=== PATIENT | male | born 1980 | race Caucasian/White ===

== ENCOUNTER 2017-04-22 13:54 | Emergency (ER) | payer OTHER ==
[2017-04-22 14:28] VITALS: BP 158/94
[2017-04-22] MEDS ORDERED: Ondansetron 4 MG/2 ML SDV IVPUSH ONE (14:45)
[2017-04-22] MEDS ORDERED: Sodium Chloride 0.9% 10 ML Syringe FLUSH PRN (14:45)
[2017-04-22] MEDS ORDERED: Ketorolac 30 MG/ML SDV IVPUSH ONE (14:45)
[2017-04-22] MEDS ORDERED: Sodium Chloride 0.9% 1,000 ML IV ONE (14:45)
[2017-04-22] MEDS ORDERED: HYDROmorphone 1 MG/ML Syringe IVPUSH ONE (16:05)
--- NOTE | 2017-04-22 16:38 | EDM.PDOC ---
ED HPI GENERAL MEDICAL PROBLEM - General Chief Complaint: Headache Stated Complaint: Headache, neck pain Time Seen by Provider: 04/22/17 14:30 Source of Information: Reports: Patient, RN Notes Reviewed History Limitations: Reports: No Limitations - History of Present Illness INITIAL COMMENTS - FREE TEXT/NARRATIVE: 36 year old male presents to the ED today with complaints of progressively worsening neck pain and headache over the past 5 days. Symptoms started after he had a massage 5 days ago. The pain started in his neck and has radiated over top of his head and is not behind both eyes. He is mildly sensitive to light. He has had nausea with vomiting x5 today. He denies vision changes, slurred speech, weakness in extremities, loss of balance, fever. He has felt tired with some chills. He has a history of migraines but feels this is different. He denies thunder clap type onset. He denies any head or neck injury. 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 Head Pain Score (Numeric/FACES): 10 - Related Data Allergies Allergy/AdvReac Type Severity Reaction Status Date / Time No Known Allergies Allergy Verified 04/22/17 14:32 Home Meds: Home Meds LORazepam [Ativan] 0.5 mg PO ASDIRECTED PRN 04/22/17 [History] Losartan [Cozaar] 50 mg PO DAILY 04/22/17 [History] Meloxicam 15 mg PO DAILY 04/22/17 [History] Orphenadrine [Norflex] 100 mg PO BID #15 tab.er 04/22/17 [Rx] Past Medical History Cardiovascular History: Reports: Hypertension Psychiatric History: Reports: Depression Social & Family History - Tobacco Use Smoking Status *Q: Never Smoker - Caffeine Use Caffeine Use: Reports: None - Recreational Drug Use Recreational Drug Use: No ED ROS GENERAL - Review of Systems Review Of Systems: See Below Constitutional: Reports: Chills. Denies: Fever, Diaphoresis HEENT: Reports: No Symptoms. Denies: Vision Change Respiratory: Reports: No Symptoms. Denies: Shortness of Breath, Cough Cardiovascular: Reports: No Symptoms. Denies: Chest Pain GI/Abdominal: Reports: Nausea, Vomiting. Denies: Abdominal Pain, Constipation, Diarrhea Musculoskeletal: Reports: Neck Pain, Muscle Pain Neurological: Reports: Headache. Denies: Confusion, Dizziness, Numbness, Tingling, Weakness - Physical Exam Exam: See Below Exam Limited By: No Limitations General Appearance: Alert, WD/WN, Moderate Distress Eye Exam: Bilateral Eye: EOMI, PERRL Head Exam: Atraumatic, Normocephalic Neck: Normal Inspection, Supple, Full Range of Motion, Tender Lateral, Other ( muscles are very tight). No: Tender Midline Respiratory/Chest: No Respiratory Distress, Lungs Clear, Normal Breath Sounds Cardiovascular: Normal Peripheral Pulses, Regular Rate, Rhythm, No Murmur GI/Abdominal: Normal Bowel Sounds, Soft, Non-Tender Neuro Exam (Abbreviated): Alert, Oriented, CN II-XII Intact, Normal Cognition, No Motor/Sensory Deficits, Other (cerebellar testing intact. upper and lower extremity strengths are equal bilaterally ) Extremities: Normal Inspection, Normal Range of Motion Skin Exam: Warm, Dry, Intact Course - Vital Signs Last Recorded V/S: Last Vital Signs Temp 99.7 F 04/22/17 14:27 Pulse 64 04/22/17 14:27 Resp 20 04/22/17 14:27 BP 158/94 H 04/22/17 14:27 Pulse Ox 100 04/22/17 14:27 - Orders/Labs/Meds Orders: Active Orders 24 hr Category Date Time Status Peripheral IV Care [RC] . DIRECTED Care 04/22/17 14:46 Active Peripheral IV Insertion Adult [OM.PC] Stat Oth 04/22/17 14:45 Ordered Meds: Medications Discontinued Medications Generic Name Dose Route Start Last Admin Trade Name Freq PRN Reason Stop Dose Admin Diazepam 5 mg 04/22/17 14:45 04/22/17 15:01 Valium IM 04/22/17 14:46 5 mg ONETIME ONE Administration Hydromorphone HCl 1 mg 04/22/17 16:05 04/22/17 16:10 Dilaudid IVPUSH 04/22/17 16:06 1 mg ONETIME ONE Administration Sodium Chloride 1,000 mls @ 999 mls/hr 04/22/17 14:45 04/22/17 15:00 Normal Saline IV 04/22/17 15:45 999 mls/hr ONETIME ONE Administration Ketorolac Tromethamine 30 mg 04/22/17 14:45 04/22/17 15:05 Toradol IVPUSH 04/22/17 14:46 30 mg ONETIME ONE Administration Ondansetron HCl 4 mg 04/22/17 14:45 04/22/17 15:03 Zofran IVPUSH 04/22/17 14:46 4 mg ONETIME ONE Administration Sodium Chloride 10 ml 04/22/17 14:45 04/22/17 15:06 Saline Flush FLUSH 10 ml ASDIRECTED PRN Administration Keep Vein Open - Re-Assessments/Exams Free Text/Narrative Re-Assessment/Exam: Neuro exam today is normal. History and exam are consistent with tension type headache. Initial treatment included IV NS 1 liter bolus, Zofran 4mg, Toradol 30mg, and Valium 5mg. Patient had some improvement in his neck pain but little improvement in frontal headache. He was then given 1mg IV Dilaudid and had complete resolution of pain. He will be discharged home. Educated that he cannot drive. He was told to stop his Meloxicam by Dr. Leyva. Educated on return precautions. Discharge instructions as documented. Departure - Departure Time of Disposition: 16:38 Disposition: Home, Self-Care 01 Condition: Good Clinical Impression: Tension-type headache - Discharge Information Prescriptions: Orphenadrine [Norflex] 100 mg PO BID #15 tab.er Instructions: Tension Headache, [id number] Referrals: Rony Catherine MD [Primary Care Provider] - Forms: ED Department Discharge Additional Instructions: Go home and rest in a dark quiet environment Tylenol 1000mg every 8 hours as needed for pain Stop Meloxicam Start Orphadrine (Norflex) 100mg twice a day (morning and night) to help relax your muscles Avoid Ibuprofen or Aleve for the next couple days You can also take Bendaryl 1-2 tabs every 6 hours Return to ER with any new or worsening symptoms - My Orders Last 24 Hours: My Active Orders 04/22/17 14:45 Peripheral IV Insertion Adult [OM.PC] Stat 04/22/17 14:46 Peripheral IV Care [RC] . DIRECTED - Assessment/Plan Last 24 Hours: My Active Orders 04/22/17 14:45 Peripheral IV Insertion Adult [OM.PC] Stat 04/22/17 14:46 Peripheral IV Care [RC] . DIRECTED
== END 2017-04-22 16:46 | disposition home or self-care (01) ==
LOC: JD.ED 13:54
DX: G44.209 Tension-type headache, unspecified, not intractable (principal); I10 Essential (primary) hypertension; Z79.899 Other long term (current) drug therapy
CPT/HCPCS: 96361; 96372; 96374; 96375; 99284; J1170; J1885; J2405; J3360; J7040; J7050

== ENCOUNTER 2017-08-12 08:13 | Emergency (ER) | payer OTHER ==
[2017-08-12 08:23] VITALS: BP 144/95
[2017-08-12] MEDS ORDERED: Sodium Chloride 0.9% 10 ML Syringe FLUSH PRN (08:37)
[2017-08-12] MEDS ORDERED: Aspirin 81 MG Tab.Chew PO ONE (08:43)
--- NOTE | 2017-08-12 09:31 | CR ---
Chest: Portable view of the chest was obtained. Comparison: No prior chest x-ray. Heart size and mediastinum are normal. Lungs are clear. Bony structures are grossly intact. Impression: 1. Nothing acute is identified on portable chest x-ray. Diagnostic code #1
--- NOTE | 2017-08-12 09:45 | EDM.PDOC ---
ED HPI GENERAL MEDICAL PROBLEM - General Chief Complaint: Chest Pain Stated Complaint: CHEST PAIN Time Seen by Provider: 08/12/17 08:24 Source of Information: Reports: Patient History Limitations: Reports: No Limitations - History of Present Illness INITIAL COMMENTS - FREE TEXT/NARRATIVE: The patient presents with left sided chest tightness. This has been going on for 4 days. The pain comes and goes. He is not noticing anything that makes it better or worse. He has no shortness of breath with it. He has no fever, chills, cough, congestion, runny nose or abdominal pain. He has had this before and he had EKGs, CXR, labs and a holter monitor and nothing was found. He does not smoke. He has a history of HTN. He is not a diabetic and he has no high cholesterol. Onset: Gradual Duration: Day(s): (4) Location: Reports: Chest Quality: Reports: Other (Tightness) Severity: Mild Improves with: Reports: None Worsens with: Reports: None Associated Symptoms: Reports: Chest Pain. Denies: Cough, Fever/Chills, Headaches, Nausea/Vomiting, Shortness of Breath Chest Pain Score (Numeric/FACES): 3 - Related Data Allergies Allergy/AdvReac Type Severity Reaction Status Date / Time clarithromycin [From Biaxin] Allergy Cannot Verified 08/12/17 08:18 Remember meloxicam Allergy Headache Verified 08/12/17 08:18 Home Meds: Home Meds LORazepam [Ativan] 0.5 mg PO ASDIRECTED PRN 04/22/17 [History] Losartan [Cozaar] 50 mg PO DAILY 04/22/17 [History] Orphenadrine [Norflex] 100 mg PO BID #15 tab.er 04/22/17 [Rx] Past Medical History Cardiovascular History: Reports: Hypertension Musculoskeletal History: Reports: Other (See Below) Other Musculoskeletal History: "tight muscles" Psychiatric History: Reports: Depression Social & Family History - Family History Family Medical History: Noncontributory - Tobacco Use Smoking Status *Q: Never Smoker - Caffeine Use Caffeine Use: Reports: Soda - Alcohol Use Days Per Week of Alcohol Use: 7 Number of Drinks Per Day: 4 Total Drinks Per Week: 28 Date of Last Drink: 08/07/17 - Recreational Drug Use Recreational Drug Use: No ED ROS GENERAL - Review of Systems Review Of Systems: See Below Constitutional: Reports: No Symptoms HEENT: Reports: No Symptoms Respiratory: Reports: No Symptoms Cardiovascular: Reports: Chest Pain Endocrine: Reports: No Symptoms GI/Abdominal: Reports: No Symptoms : Reports: No Symptoms Musculoskeletal: Reports: No Symptoms Skin: Reports: No Symptoms ED EXAM, GENERAL - Physical Exam Exam: See Below Exam Limited By: No Limitations General Appearance: Alert, No Apparent Distress Ears: Normal External Exam Nose: Normal Inspection Head: Atraumatic, Normocephalic Neck: Normal Inspection Respiratory/Chest: No Respiratory Distress, Lungs Clear, Normal Breath Sounds Cardiovascular: Regular Rate, Rhythm, No Edema, No Murmur GI/Abdominal: Soft, Non-Tender, No Organomegaly, No Mass Back Exam: Normal Inspection Extremities: Normal Inspection Neurological: Alert, Oriented, No Motor/Sensory Deficits EKG INTERPRETATION EKG Date: 08/12/17 Time: 08:20 Rhythm: NSR Rate (Beats/Min): 76 [place]: Normal P-Wave: Present QRS: Normal ST-T: Normal QT: Normal Course - Vital Signs Last Recorded V/S: Last Vital Signs Temp 97.2 F 08/12/17 08:19 Pulse 75 08/12/17 08:19 Resp BP 144/95 H 08/12/17 08:19 Pulse Ox 98 08/12/17 08:19 - Orders/Labs/Meds Orders: Active Orders 24 hr Category Date Time Status Cardiac Monitoring [RC] . DIRECTED Care 08/12/17 08:37 Active EKG Documentation Completion [RC] ASDIRECTED Care 08/12/17 08:27 Active Peripheral IV Care [RC] . DIRECTED Care 08/12/17 08:38 Active Sodium Chloride 0.9% [Saline Flush] Med 08/12/17 08:37 Active 10 ml FLUSH ASDIRECTED PRN EKG 12 Lead [EK] Stat Ther 08/12/17 08:27 Ordered Medication Orders Sodium Chloride (Saline Flush) 10 ml FLUSH ASDIRECTED PRN PRN Reason: Keep Vein Open Labs: Laboratory Tests 08/12/17 08/12/17 Range/Units 08:55 08:55 WBC 6.81 (4.23-9.07) K/mm3 RBC 5.05 (4.63-6.08) M/mm3 Hgb 15.0 (13.7-17.5) gm/L Hct 44.7 (40.1-51.0) % MCV 88.5 (79.0-92.2) fl MCH 29.7 (25.7-32.2) pg MCHC 33.6 (32.2-35.5) g/dl RDW Std Deviation 40.7 (35.1-43.9) fL Plt Count 224 (163-337) K/mm3 MPV 10.1 (9.4-12.3) fl Neut % (Auto) 68.6 H (34.0-67.9) % Lymph % (Auto) 20.6 L (21.8-53.1) % Meagher % (Auto) 9.1 (5.3-12.2) % Eos % (Auto) 1.2 (0.8-7.0) Baso % (Auto) 0.4 (0.1-1.2) % Neut # (Auto) 4.67 (1.78-5.38) K/mm3 Lymph # (Auto) 1.40 (1.32-3.57) K/mm3 [place] # (Auto) 0.62 (0.30-0.82) K/mm3 Eos # (Auto) 0.08 (0.04-0.54) K/mm3 Baso # (Auto) 0.03 (0.01-0.08) K/mm3 Sodium 140 (136-145) mEq/L Potassium 3.8 (3.5-5.1) mEq/L Chloride 106 (98-107) mEq/L Carbon Dioxide 25 (21-32) mEq/L Anion Gap 12.8 (5-15) BUN 18 (7-18) mg/dL Creatinine 1.0 (0.7-1.3) mg/dL Est Cr Clr Drug Dosing 119.88 mL/min Estimated GFR (MDRD) > 60 (>60) mL/min BUN/Creatinine Ratio 18.0 (14-18) Glucose 96 (74-106) mg/dL Calcium 9.1 (8.5-10.1) mg/dL Total Bilirubin 0.6 (0.2-1.0) mg/dL AST 21 (15-37) U/L ALT 38 (16-63) U/L Alkaline Phosphatase 69 (46-116) U/L Troponin I < 0.017 (0.00-0.056) ng/mL Total Protein 7.5 (6.4-8.2) g/dl Albumin 3.7 (3.4-5.0) g/dl Globulin 3.8 gm/dL Albumin/Globulin Ratio 1.0 (1-2) Meds: Medications Generic Name Dose Route Start Last Admin Trade Name Frebriseida PRN Reason Stop Dose Admin Sodium Chloride 10 ml 08/12/17 08:37 Saline Flush FLUSH ASDIRECTED PRN Keep Vein Open Discontinued Medications Generic Name Dose Route Start Last Admin Trade Name Freq PRN Reason Stop Dose Admin Aspirin 324 mg 08/12/17 08:43 08/12/17 09:15 Aspirin PO 08/12/17 08:44 324 mg ONETIME ONE Administration - Re-Assessments/Exams Free Text/Narrative Re-Assessment/Exam: 08/12/17 09:44 I ordered aspirin, EKG, CXR and labs. His EKG shows a NSR with no acute changes. His CXR shows no infiltrates. His CBC and CMP look good. His troponin is negative. Departure - Departure Time of Disposition: 09:50 Disposition: Home, Self-Care 01 Condition: Good Clinical Impression: Atypical chest pain Referrals: Rony Catherine MD [Primary Care Provider] - 1 Week Forms: ED Department Discharge Additional Instructions: Take tylenol or motrin for pain. Follow up with Dr Leyva. Please return if you are worse. - My Orders Last 24 Hours: My Active Orders 08/12/17 08:27 EKG Documentation Completion [RC] ASDIRECTED EKG 12 Lead [EK] Stat 08/12/17 08:37 Cardiac Monitoring [RC] . DIRECTED Sodium Chloride 0.9% [Saline Flush] 10 ml FLUSH ASDIRECTED PRN 08/12/17 08:38 Peripheral IV Care [RC] . DIRECTED - Assessment/Plan Last 24 Hours: My Active Orders 08/12/17 08:27 EKG Documentation Completion [RC] ASDIRECTED EKG 12 Lead [EK] Stat 08/12/17 08:37 Cardiac Monitoring [RC] . DIRECTED Sodium Chloride 0.9% [Saline Flush] 10 ml FLUSH ASDIRECTED PRN 08/12/17 08:38 Peripheral IV Care [RC] . DIRECTED
== END 2017-08-12 10:05 | disposition home or self-care (01) ==
LOC: JD.ED 08:13
DX: R07.89 Other chest pain (principal); I10 Essential (primary) hypertension; Z88.1 Allergy status to other antibiotic agents; Z88.8 Allergy status to other drugs, medicaments and biological substances; Z79.899 Other long term (current) drug therapy
CPT/HCPCS: 36415; 71045; 80053; 84484; 85025; 93005; 99285; A9270; 93010; 99284-25

== ENCOUNTER 2022-11-11 03:02 | Emergency (ER) | payer OTHER ==
[2022-11-11 04:26] LABS: ESTIMATED GFR 78 mL/min (>60)
[2022-11-11 05:33] VITALS: BP 148/92; PULSE 68
== END 2022-11-11 05:30 | disposition home or self-care (01) ==
LOC: JD.ED 03:02
DX: R07.89 Other chest pain (principal); R74.01 Elevation of levels of liver transaminase levels; I10 Essential (primary) hypertension; Z87.891 Personal history of nicotine dependence; Z88.1 Allergy status to other antibiotic agents; Z88.8 Allergy status to other drugs, medicaments and biological substances; Z79.899 Other long term (current) drug therapy
CPT/HCPCS: 36415; 71046; 71046-26; 80053; 84484; 85025; 85379; 93005; 99283; 99285